=== PATIENT | female | born 1975 | race Caucasian/White ===

== ENCOUNTER 2017-05-16 10:31 | Emergency (ER) | payer BC, OTHER ==
[~2017-05-16] VITALS: Ht 165.1 cm; Wt 69.5 kg
[~2017-05-16 10:31] MED LIST: ESCI1TAB18 PO
[2017-05-16 10:33] VITALS: TEMP 36.8; Ht 165.1 cm; Wt 69.5 kg
[2017-05-16] MEDS ORDERED: KETOROLAC TROMETHAMINE 30 MG/ML VIAL IV STA (10:50)
[2017-05-16] MEDS ORDERED: PROCHLORPERAZINE 5 MG/ML 2 ML VIAL IV STA (10:50)
[2017-05-16] MEDS ORDERED: SODIUM CHLORIDE 0.9% 1000ML 1,000 ML IV STA (10:50)
[2017-05-16] MEDS ORDERED: DiphenhydrAMINE HCL 50 MG/ML VIAL IV STA (10:50)
[2017-05-16] MEDS ORDERED: OPTIRAY 320 IV PRN (11:00)
--- NOTE | 2017-05-16 11:25 | EMERGENCY ROOM VISIT NOTE ---
History Report prepared by Araceliibe: Cherie Canas Under the Supervision of: Dr. Moises Dugan M.D. First contact with patient: 10:47 Chief Complaint: HEADACHE Stated Complaint: MIGRAINE FROM NECK STRAIN History of Present Illness The patient is a 42 year old female who presents to the Emergency Room with complaints of a worsening headache for the past 2.5 days. She rates her discomfort as a 7/10 to 10/10 in severity. The pain radiates from the base of her neck into her jaw and left ear. Advil and Icy Hot have provided minimal relief. She has been nauseous but has not vomited. She denies any recent injuries to her head or neck. She has experienced similar headaches in the past , but states they have never "lasted this long or been this severe". Her bilateral arms feel weak from the headache. The patient denies LOC, fevers, chills, diaphoresis, visual changes, chest pain, breathing difficulties, abdominal pain, back pain, melena, hematochezia, urinary symptoms, numbness, lymphadenopathy, rash, or other complaints. 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 A total of ten systems were reviewed and were otherwise negative. Past Medical & Surgical Medical Problems: (1) Abdominal pain (2) Anxiety (3) Arthritis (4) Depression (5) High blood cholesterol (6) Mood disorder Family History Cancer Social History Smoking Status: Current Every Day Smoker Alcohol Use: occasionally Drug Use: none Marital Status: Housing Status: lives with family Occupation Status: employed Current/Historical Medications Scheduled Escitalopram (Lexapro), 30 MG PO DAILY Mirtazapine (Remeron), 15 MG PO DAILY Allergies Coded Allergies: Prednisone (Unverified Allergy, Unknown, unknown from dr faust records, 05/16/17) Simvastatin (Verified Allergy, Unknown, HIVES, 05/16/17) Hydromorphone (Unverified Adverse Reaction, Intermediate, N/V, 05/16/17) Physical Exam Vital Signs Date Time Temp Pulse Resp B/P (MAP) Pulse Ox O2 Delivery O2 Flow Rate FiO2 05/16/17 13:17 76 136/94 98 05/16/17 12:17 88 16 97 Room Air 05/16/17 10:33 36.8 92 18 128/88 98 Room Air Physical Exam GENERAL: Awake, alert, well appearing, no distress HENT: Normocephalic, atraumatic. TM's normal. Oropharynx unremarkable. EYES: PERRL. EOMI. Normal conjunctiva. Sclera non-icteric. NECK: Supple. No nuchal rigidity. FROM. No bruit. RESPIRATORY: Breath sounds equal. No wheezes. No rhonchi. CARDIAC: Normal rate. Regular rhythm. No murmurs. No rubs. No JVD. GI: Soft, non distended. No tenderness to palpation. No rebound or guarding. No masses. RECTAL: Deferred. MUSCULOSKELETAL: Unremarkable. No edema. No discoloration. Gross motor strength symmetric. NEURO: Cranial nerves 2-12 grossly intact. Normal sensorium. No sensory or motor deficits noted. Speech normal. No pronator drift. SKIN: No rash or jaundice noted. LYMPH: No adenopathy. Medical Decision & Procedures ER Provider Diagnostic Interpretation: Radiology results as stated below per my review and radiologist interpretation: CT ANGIOGRAM OF THE BRAIN COMBO; CT ANGIOGRAM OF THE NECK CLINICAL HISTORY: Headache. Neck pain. COMPARISON STUDY: No priors. TECHNIQUE: Unenhanced axial CT scan of the brain is performed. Subsequently, following the IV administration of 120 of Optiray 320, CT angiogram of the head and neck was performed from the aortic arch to the vertex. Images are reviewed in the axial, sagittal, and coronal planes. 3-D MIPS images are created and assessed. IV contrast was administered without complication. All measurements were calculated based on NASCET criteria. A dose lowering technique was utilized adhering to the principles of ALARA. CT DOSE: 1167.55 mGy.cm FINDINGS: Brain parenchyma: The brain parenchyma is normal in appearance. There is no hemorrhage, mass effect, or evidence of acute territorial ischemia by CT criteria. There is no evidence of enhancing mass lesion on the angiogram phase images. The ventricles, sulci, and cisterns are normal in configuration. Guerrero-white matter differentiation is preserved. No extra-axial fluid collection is seen. Thoracic aorta: Visualized portions of the thoracic aorta are normal in caliber. The aortic arch demonstrates standard 3-vessel anatomy. Right carotid arterial system: The right common carotid artery is widely patent, as are the right internal and external carotid arteries. Left carotid arterial system: The left common carotid artery is widely patent, as are the left internal and external carotid arteries. Vertebral arteries: The vertebral arteries are widely patent bilaterally noting left-sided dominance. Subclavian arteries: Widely patent bilaterally. Intracranial vasculature: There is origin of the right posterior cerebral artery. The internal carotid arteries are patent at the skull base, as are the anterior and middle cerebral arteries bilaterally. The vertebrobasilar system and posterior cerebral arteries are widely patent. The left vertebral artery is dominant. There is no aneurysm, high-grade stenosis, or focal vessel cut off seen throughout the intracranial circulation. Jugular veins: Widely patent bilaterally. Dural sinuses: Patent. Lung apices: Partially visualized upper lobe lung parenchyma appears clear. Soft tissues: The visualized pharyngeal soft tissues are normal in appearance noting angiographic phase technique. The oropharyngeal airway appears widely patent. The salivary and thyroid glands are normal in appearance. No cervical lymphadenopathy is seen. Skeletal structures: The calvarium appears intact. The cervical spine is within normal limits. Sinuses and mastoids: Mild mucosal thickening is seen in the right maxillary antrum. The remaining paranasal sinuses are clear. The mastoid air cells are well pneumatized. IMPRESSION: 1. No acute intracranial abnormality. 2. Unremarkable CT angiogram of the brain. 3. Unremarkable CT angiogram of the neck. Electronically signed by: Tim Beck M.D. 05/16/2017 12:[address] ANGIOGRAM OF THE BRAIN COMBO; CT ANGIOGRAM OF THE NECK CLINICAL HISTORY: Headache. Neck pain. COMPARISON STUDY: No priors. TECHNIQUE: Unenhanced axial CT scan of the brain is performed. Subsequently, following the IV administration of 120 of Optiray 320, CT angiogram of the head and neck was performed from the aortic arch to the vertex. Images are reviewed in the axial, sagittal, and coronal planes. 3-D MIPS images are created and assessed. IV contrast was administered without complication. All measurements were calculated based on NASCET criteria. A dose lowering technique was utilized adhering to the principles of ALARA. CT DOSE: 1167.55 mGy.cm FINDINGS: Brain parenchyma: The brain parenchyma is normal in appearance. There is no hemorrhage, mass effect, or evidence of acute territorial ischemia by CT criteria. There is no evidence of enhancing mass lesion on the angiogram phase images. The ventricles, sulci, and cisterns are normal in configuration. Guerrero-white matter differentiation is preserved. No extra-axial fluid collection is seen. Thoracic aorta: Visualized portions of the thoracic aorta are normal in caliber. The aortic arch demonstrates standard 3-vessel anatomy. Right carotid arterial system: The right common carotid artery is widely patent, as are the right internal and external carotid arteries. Left carotid arterial system: The left common carotid artery is widely patent, as are the left internal and external carotid arteries. Vertebral arteries: The vertebral arteries are widely patent bilaterally noting left-sided dominance. Subclavian arteries: Widely patent bilaterally. Intracranial vasculature: There is origin of the right posterior cerebral artery. The internal carotid arteries are patent at the skull base, as are the anterior and middle cerebral arteries bilaterally. The vertebrobasilar system and posterior cerebral arteries are widely patent. The left vertebral artery is dominant. There is no aneurysm, high-grade stenosis, or focal vessel cut off seen throughout the intracranial circulation. Jugular veins: Widely patent bilaterally. Dural sinuses: Patent. Lung apices: Partially visualized upper lobe lung parenchyma appears clear. Soft tissues: The visualized pharyngeal soft tissues are normal in appearance noting angiographic phase technique. The oropharyngeal airway appears widely patent. The salivary and thyroid glands are normal in appearance. No cervical lymphadenopathy is seen. Skeletal structures: The calvarium appears intact. The cervical spine is within normal limits. Sinuses and mastoids: Mild mucosal thickening is seen in the right maxillary antrum. The remaining paranasal sinuses are clear. The mastoid air cells are well pneumatized. IMPRESSION: 1. No acute intracranial abnormality. 2. Unremarkable CT angiogram of the brain. 3. Unremarkable CT angiogram of the neck. Electronically signed by: Tim Beck M.D. 05/16/2017 12:37 PM Laboratory Results 05/16/17 11:00 Red Blood Count 4.22, Mean Corpuscular Volume 100.5, Mean Corpuscular Hemoglobin 35.8, Mean Corpuscular Hemoglobin Concent 35.6, Mean Platelet Volume 9.7, Neutrophils (%) (Auto) 66.7, Lymphocytes (%) (Auto) 24.5, Monocytes (%) ( Auto) 6.3, Eosinophils (%) (Auto) 1.2, Basophils (%) (Auto) 0.4, Neutrophils # ( Auto) 4.56, Lymphocytes # (Auto) 1.67, Monocytes # (Auto) 0.43, Eosinophils # ( Auto) 0.08, Basophils # (Auto) 0.03 05/16/17 11:00 Test 05/16/17 11:00 White Blood Count 6.83 K/uL (4.8-10.8) Red Blood Count 4.22 M/uL (4.2-5.4) Hemoglobin 15.1 g/dL (12.0-16.0) Hematocrit 42.4 % (37-47) Mean Corpuscular Volume 100.5 fL (80-100) Mean Corpuscular Hemoglobin 35.8 pg (25-34) Mean Corpuscular Hemoglobin Concent 35.6 g/dl (32-36) Platelet Count 164 K/uL (130-400) Mean Platelet Volume 9.7 fL (7.4-10.4) Neutrophils (%) (Auto) 66.7 % Lymphocytes (%) (Auto) 24.5 % Monocytes (%) (Auto) 6.3 % Eosinophils (%) (Auto) 1.2 % Basophils (%) (Auto) 0.4 % Neutrophils # (Auto) 4.56 K/uL (1.4-6.5) Lymphocytes # (Auto) 1.67 K/uL (1.2-3.4) Monocytes # (Auto) 0.43 K/uL (0.11-0.59) Eosinophils # (Auto) 0.08 K/uL (0-0.5) Basophils # (Auto) 0.03 K/uL (0-0.2) RDW Standard Deviation 49.9 fL (36.4-46.3) RDW Coefficient of Variation 13.7 % (11.5-14.5) Immature Granulocyte % (Auto) 0.9 % Immature Granulocyte # (Auto) 0.06 K/uL (0.00-0.02) Erythrocyte Sedimentation Rate 3 mm/hr (0-21) Anion Gap 7.0 mmol/L (3-11) Est Creatinine Clear Calc Drug Dose 62.8 ml/min Estimated GFR () 68.9 Estimated GFR (Non- 59.5 BUN/Creatinine Ratio 9.6 (10-20) Calcium Level 9.2 mg/dl (8.5-10.1) Human Chorionic Gonadotropin, Qual NEG (NEG) Lyme Disease IgG Antibody NEG (NEG) Lyme Disease IgM Antibody NEG (NEG) Laboratory results reviewed by me Medications Administered Medications (Trade) Dose Ordered Sig/Benjamin Route Start Time Stop Time Status Last Admin Dose Admin Prochlorperazine Edisylate (Compazine Inj) 10 mg NOW STAT IV 05/16/17 10:50 05/16/17 10:53 DC 05/16/17 11:09 10 MG Sodium Chloride 1,000 ml @ 999 mls/hr Q1H1M STAT IV 05/16/17 10:50 05/16/17 11:50 DC 05/16/17 11:10 999 MLS/HR Ketorolac Tromethamine (Toradol Inj) 15 mg NOW STAT IV 05/16/17 10:50 05/16/17 10:53 DC 05/16/17 11:10 15 MG Diphenhydramine HCl (Benadryl Inj) 25 mg NOW STAT IV 05/16/17 10:50 05/16/17 10:53 DC 05/16/17 11:09 25 MG Acetaminophen/ Butalbital/ Caffeine (Fioricet Tab) 2 tab NOW STAT PO 05/16/17 13:01 05/16/17 13:03 DC 05/16/17 13:15 2 TAB ED Course 1049: The patient was evaluated in room C4. A complete history and physical exam was performed. 1050: Benadryl 25 mg IV, Toradol 15 mg IV, NSS 1000 ml @ 999 mls/hr IV, Compazine 10 mg IV. 1305: I reevaluated the patient. She is feeling well and is ready to go home. I discussed her results and discharge instructions and she verbalized complete understanding and agreement. Medical Decision Triage Nursing notes reviewed. The patient's presentation and history were concerning for headache. Etiologies such as migraine, tumor, headache, sinus thrombosis, temporal arteritis, sinusitis, CVA, ICH, SAH, infection, vascular, as well as others were entertained. Patient was evaluated. Her physical examination was nonfocal. She was afebrile. No meningeal findings. An IV was established. Blood work was obtained. The patient was given Compazine, Benadryl, Toradol, and fluid hydration. She was sent for CT imaging. CT angiography of the head neck did not reveal any acute findings. After treatment with the previously noted medications the patient had resolution of symptoms and felt much better. The patient had a gradual onset of her headaches. She has no meningeal findings. She has no fever or white count. Lumbar puncture was felt to be unnecessary at this time. conservative management was discussed and the patient felt comfortable. She was given 2 Fioricet to go in case any symptoms returned and were not responsive to ibuprofen or Tylenol. She will follow-up with her primary physician. If she worsens in any way she will be back. Dr. John Huddleston the evaluation outlined above other emergent etiologies such as those listed in the differential, as well as others, were deemed relatively unlikely. The patient was educated about the findings as listed above. All questions were answered and the patient was pleased with the treatment. Return instructions were outlined and the patient was discharged in stable condition. The patient was referred to her PCP for follow-up for a recheck of the current condition. Medication Reconcilliation Current Medication List: was personally reviewed by me Blood Pressure Screening Patient's blood pressure: Normal blood pressure Blood pressure disposition: Did not require urgent referral Impression Primary Impression: Headache Scribe Attestation The scribe's documentation has been prepared under my direction and personally reviewed by me in its entirety. I confirm that the note above accurately reflects all work, treatment, procedures, and medical decision making performed by me. Departure Information Dispostion Home / Self-Care Referrals Juancarlos Hale MD (PCP) Patient Instructions My [facility] Additional Instructions For recurrent headache HEADACHE INSTRUCTIONS: DO NOT drive, drink alcohol, operate machinery, or perform dangerous activities today. You were given medications in the ER that can affect your ability to safely function or operate a vehicle. Rest today in a quiet, peaceful, dark environment and get a full 8-10 hrs of sleep tonight. Avoid loud noises, smoke/smoking, alcohol, bright lights, stress, or physical exertion today to minimize the chance the headache may return. Continue current medications. Ibuprofen(Motrin, Advil) may be used for fever or pain. Use 600mg every six hours as needed. Take with food. Avoid using more than 2400mg in a 24 hour period. Do not use 2400mg per day for more than three consecutive days without physician direction. Prolonged inappropriate use can lead to stomach upset or ulcers. (AND/OR) Acetaminophen(Tylenol) may be used for fever or pain. Use 1000mg every six hours as needed. Avoid using more than 4000mg in a 24 hour period. For headache not responsive to ibuprofen, take Fioricet 1 pill every 4 hours. Return to the ER for passing out, worsening headache, vision problems, neck stiffness/pain, fevers, vomiting, worsening of your condition, or as needed. Follow up with your primary physician in 2-3 days for a recheck of your current condition.
[2017-05-16] MEDS ORDERED: MIRT15TA PO (11:26)
[2017-05-16] MEDS ORDERED: ESCI10TA17 PO (11:26)
[2017-05-16 11:27] LABS: BASO % 0.4 %; BASO ABS # 0.03 K/uL (0-0.2); EOS % 1.2 %; EOS ABS # 0.08 K/uL (0-0.5); HEMATOCRIT 42.4 % (37-47); HEMOGLOBIN 15.1 g/dL (12.0-16.0); IG# 0.06 K/uL (0.00-0.02); LYMPH % 24.5 %; LYMPH ABS # 1.67 K/uL (1.2-3.4); MEAN CELL VOLUME 100.5 fL (80-100); MEAN CORPUSCULAR HEMOGLOBIN 35.8 pg (25-34); MEAN CORPUSCULAR HGB CONC 35.6 g/dl (32-36); MEAN PLATELET VOLUME 9.7 fL (7.4-10.4); MONO % 6.3 %; MONO ABS # 0.43 K/uL (0.11-0.59); NEUT % 66.7 %; NEUT ABS # 4.56 K/uL (1.4-6.5); PLATELET COUNT 164 K/uL (130-400); RED CELL DISTRIBUTION WIDTH CV 13.7 % (11.5-14.5); RED CELL DISTRIBUTION WIDTH SD 49.9 fL (36.4-46.3); WHITE BLOOD COUNT 6.83 K/uL (4.8-10.8)
[2017-05-16 11:51] LABS: CALCIUM 9.2 mg/dl (8.5-10.1); CREATININE 1.13 mg/dl (0.60-1.20)
--- NOTE | 2017-05-16 12:39 | DIAGNOSTIC IMAGING REPORT ---
CT ANGIOGRAM OF THE BRAIN COMBO; CT ANGIOGRAM OF THE NECK CLINICAL HISTORY: Headache. Neck pain. COMPARISON STUDY: No priors. TECHNIQUE: Unenhanced axial CT scan of the brain is performed. Subsequently, following the IV administration of 120 of Optiray 320, CT angiogram of the head and neck was performed from the aortic arch to the vertex. Images are reviewed in the axial, sagittal, and coronal planes. 3-D MIPS images are created and assessed. IV contrast was administered without complication. All measurements were calculated based on NASCET criteria. A dose lowering technique was utilized adhering to the principles of ALARA. CT DOSE: 1167.55 mGy.cm FINDINGS: Brain parenchyma: The brain parenchyma is normal in appearance. There is no hemorrhage, mass effect, or evidence of acute territorial ischemia by CT criteria. There is no evidence of enhancing mass lesion on the angiogram phase images. The ventricles, sulci, and cisterns are normal in configuration. Guerrero-white matter differentiation is preserved. No extra-axial fluid collection is seen. Thoracic aorta: Visualized portions of the thoracic aorta are normal in caliber. The aortic arch demonstrates standard 3-vessel anatomy. Right carotid arterial system: The right common carotid artery is widely patent, as are the right internal and external carotid arteries. Left carotid arterial system: The left common carotid artery is widely patent, as are the left internal and external carotid arteries. Vertebral arteries: The vertebral arteries are widely patent bilaterally noting left-sided dominance. Subclavian arteries: Widely patent bilaterally. Intracranial vasculature: There is origin of the right posterior cerebral artery. The internal carotid arteries are patent at the skull base, as are the anterior and middle cerebral arteries bilaterally. The vertebrobasilar system and posterior cerebral arteries are widely patent. The left vertebral artery is dominant. There is no aneurysm, high-grade stenosis, or focal vessel cut off seen throughout the intracranial circulation. Jugular veins: Widely patent bilaterally. Dural sinuses: Patent. Lung apices: Partially visualized upper lobe lung parenchyma appears clear. Soft tissues: The visualized pharyngeal soft tissues are normal in appearance noting angiographic phase technique. The oropharyngeal airway appears widely patent. The salivary and thyroid glands are normal in appearance. No cervical lymphadenopathy is seen. Skeletal structures: The calvarium appears intact. The cervical spine is within normal limits. Sinuses and mastoids: Mild mucosal thickening is seen in the right maxillary antrum. The remaining paranasal sinuses are clear. The mastoid air cells are well pneumatized. IMPRESSION: 1. No acute intracranial abnormality. 2. Unremarkable CT angiogram of the brain. 3. Unremarkable CT angiogram of the neck. Electronically signed by: Tim Beck M.D. 05/16/2017 12:37 PM Dictated Date/Time: 05/16/2017 12:30 PM
[2017-05-16] MEDS ORDERED: BUTALBITAL/ACETAMIN/CAFFEINE TAB PO STA (13:01)
[2017-05-16] MEDS ORDERED: EMPTY 8 DRAM VIAL ONE (13:10)
[2017-05-16 13:17] VITALS: BP 136/94; PULSE 76; O2SAT 98
== END 2017-05-16 13:18 | disposition home or self-care (01) ==
LOC: C.EDB 10:33 → C.EDC 13:18
DX: R51 Headache (principal); F32.9 Major depressive disorder, single episode, unspecified; M19.90 Unspecified osteoarthritis, unspecified site; F17.200 Nicotine dependence, unspecified, uncomplicated; Z88.8 Allergy status to other drugs, medicaments and biological substances; Z88.6 Allergy status to analgesic agent; Z80.9 Family history of malignant neoplasm, unspecified

== ENCOUNTER 2019-04-13 20:23 | Inpatient (IN) ==
[2019-04-13 21:32] LABS: Basophils # (auto) 0.07 K/uL (0-0.2); Basophils % (auto) 0.6 %; Eosinophils # (auto) 0.09 K/uL (0-0.5); Eosinophils % (auto) 0.8 %; Hematocrit (blood only) 44.3 % (37-47); Hemoglobin 15.4 g/dL (12.0-16.0); Immature Granulocytes # (auto) 0.21 K/uL (0.00-0.02); Immature Granulocytes % (auto) 1.9 %; Lymphocytes # (auto) 3.31 K/uL (1.2-3.4); Lymphocytes % (auto) 29.4 %; Mean Corpuscular Hemoglobin 34.5 pg (25-34); Mean Corpuscular Hgb Conc 34.8 g/dL (32-36); Mean Corpuscular Volume 99.1 fL (80-100); Mean Platelet Volume 9.5 fL (7.4-10.4); Monocytes # (auto) 0.94 K/uL (0.11-0.59); Monocytes % (auto) 8.4 %; Neutrophils # (auto) 6.63 K/uL (1.4-6.5); Neutrophils % (auto) 58.9 %; Platelet Count 206 K/uL (130-400); RDW Coefficient of Variation 13.6 % (11.5-14.5); RDW Standard Deviation 48.4 fL (36.4-46.3); Red Blood Count 4.47 M/uL (4.2-5.4); White Blood Count 11.25 K/uL (4.8-10.8)
[2019-04-13 21:48] LABS: Prothrombin Time 9.8 Seconds (9.0-12.0)
--- NOTE | 2019-04-13 21:49 | XRay Report ---
SINGLE VIEW CHEST CLINICAL HISTORY: Atypical chest pain. FINDINGS: An AP, portable, upright chest radiograph is compared to study dated 06/15/2014. The cardiome diastinal silhouette is unremarkable. The lungs and pleural spaces are clear. No pneumothorax is seen . The bony thorax is grossly intact. IMPRESSION: No active disease in the chest. ACT 112: Negative or not required by law. Electronically signed by: Tim Beck M.D. 04/13/2019 9:47 PM
[2019-04-13 21:51] LABS: Alanine Aminotransferase 26 U/L (12-78); Albumin Globulin Ratio 1.2 (0.9-2); Albumin Level 4.1 gm/dl (3.4-5.0); Alkaline Phosphatase 61 U/L (45-117); BUN Creatinine Ratio 15.7 (10-20); Bilirubin,Total 0.4 mg/dl (0.2-1); Blood Urea Nitrogen 19 mg/dl (7-18); Calcium 9.7 mg/dl (8.5-10.1); Carbon Dioxide 24 mmol/L (21-32); Chloride 103 mmol/L (98-107); Creatinine Clr Calc Pharmacy 56.3 ml/min; Est GFR (African American) 62.6; Globulin 3.4 gm/dl (2.5-4.0); Glucose 102 mg/dl (70-99); Total Protein 7.5 gm/dl (6.4-8.2); Troponin I < 0.015 ng/ml (0-0.045)
[2019-04-13 21:53] LABS: Potassium 4.1 mmol/L (3.5-5.1); Sodium 136 mmol/L (136-145)
[2019-04-13 22:02] LABS: Aspartate Aminotransferase 10 U/L (15-37)
[2019-04-13] MEDS ORDERED: SODIUM CHLORIDE 0.9% 1000ML 1,000 ML IV ONE (22:16)
[2019-04-13] MEDS ORDERED: NITROGLYCERIN 2% OINTMENT 30GM TUBE EXT ONE (22:20)
[2019-04-13] MEDS ORDERED: ASPIRIN CHEW 324 MG PO STA (22:20)
[2019-04-13] MEDS ORDERED: ASPIRIN CHEW 324 MG ONE (22:25)
[2019-04-13 22:43] LABS: D Dimer < 190 ug/L FEU (0-500)
[2019-04-13] MEDS ORDERED: AMLODIPINE BESYLATE 5 MG TAB PO ONE (23:44)
[2019-04-13] MEDS ORDERED: AMLODIPINE BESYLATE 5 MG TAB ONE (23:47)
[2019-04-14 00:45] LABS: Lipase 131 U/L (73-393); Troponin I < 0.015 ng/ml (0-0.045)
--- NOTE | 2019-04-14 01:07 | History & Physical Report ---
Date of Service April 14, 2019 Assessment & Plan (1) Chest pain: Intermittent episodes in the last year Likely secondary to uncontrolled hypertension Recently started on CURRY inhibitor outpatient Rule out ACS ARF hyperlipidemia, statin intolerance anxiety/mood disorder, at baseline past tobacco abuse Hyperglycemia rule out DM OBS PCU Initiate Norvasc in place of lisinopril in consideration of kidney dysfunction Baseline UA, monitor creatinine sponsor IV fluids. Follow troponin TTE, Cardiology consult RE intermittent chest pain Aspirin for CAD prevention until ACS ruled out Check hemoglobin A1c DVT prophylaxis Heparin subcu Full code History of Present Illness Chief Complaint: Chest pain Primary Care Provider: Nila Estrella PA-C History obtained from patient, family, and records. Medical history significant for hypertension, hyperlipidemia, anxiety/mood disorder, past tobacco abuse, occasional alcohol binging, cervical spondylosis as per records. Last 2 months, patient BP noted to be high outpatient on visits [place] [facility] [place]. SBP 170s. Intermittent substernal discomfort in the last year occurring twice monthly even at rest with spontaneous resolution. Patient seen at PCPs office 2 days ago. SBP noted to be 170s. Patient started on lisinopril. Smoking cessation and reduction of EtOH intake recommended. Last night patient had substernal discomfort going to her neck and arm with some shortness of breath. No cough, no fever, no chills. Some lightheadedness. No headache. SBP 190s at home. Patient denies unusual stress at home, OTC NSAID intake, dietary indiscretion. Patient snores at home as per . Not sure about apneic events. Patient discomfort improved with nitroglycerin administration at the ER. Medical History as above Surgical History : Breast augmentation, BTL, endometrial ablation, CINDY Family History : Heart disease, colon cancer, gynecologic cancer Personal/Social history : Past tobacco abuse, recently quit smoking; occasional alcoholic binging, [employer] employee Allergies Allergy/AdvReac Type Severity Reaction Status Date / Time prednisone Allergy Unknown unknown Verified 04/13/19 22:[address] faust records simvastatin Allergy Unknown HIVES Verified 04/13/19 22:11 hydromorphone AdvReac Intermediate N/V Verified 04/13/19 22:11 Home Medications Home Medications Medication Instructions Recorded Confirmed Type cholecalciferol (vitamin D3) 50,000 units PO WK cap 04/05/19 04/13/19 History 25,000 unit capsule duloxetine 60 mg capsule,delayed 60 mg PO QAM cap 04/05/19 04/13/19 History release mecobalamin (vitamin B12) 1,000 1,000 mcg SL DAILY 04/05/19 04/13/19 History mcg disintegrating tablet,sublingual mirtazapine 15 mg tablet 15 mg PO HS 04/05/19 04/13/19 History L. rhamnosus-L. reuteri [RepHresh 1 cap PO DAILY 04/13/19 04/13/19 History Pro-B] duloxetine [Cymbalta] 30 mg PO QPM 04/13/19 04/13/19 History lisinopril 10 mg PO DAILY 04/13/19 04/13/19 History lisinopril 20 mg PO QAM #30 tab 04/14/19 Rx Past Med/Surg History Medical History Anxiety Cervical pain (neck) Cervical spondylosis Degenerative disc disease, cervical Depression Surgical History H/O breast augmentation History of partial hysterectomy Hx of tubal ligation Family History Mother Diabetes Father Heart disease Other CHF (congestive heart failure) Social History Preferred Language: Vietnamese Communication Ability: Effective Beliefs That Will Affect Care: None Current Living Situation: Spouse Other Information That Helps Us Care for You: No Feels Safe at Home: Yes Safety Concerns: Feels Safe At This Time Smoking Status: Former smoker Tobacco Type: cigarettes ; Smoking End Date: 04/13/2019 ; Hx Alcohol Use: Yes Alcohol type: hard liquor Hx Substance Use: No Review of Systems Review of Systems: As per HPI, all 10 systems reviewed, all other ROS negative Physical Exam Physical Exam: GENERAL: Comfortable, pleasant, no respiratory distress SKIN: Normal color, warm HEENT: [place] palpebral conjunctivae, no ptosis, dry buccal mucosa NECK : Supple, no tenderness CHEST : CTA, no tenderness HEART : RRR, no obvious murmurs ABDOMEN: Soft, nontender EXTREMITIES : No LE swelling/tenderness, no other conspicuous deformities noted NEUROLOGIC : Coherent, no facial asymmetry, no other gross focality Results & Data Vital Signs (Past 12 Hours) Vital Signs Temp Pulse Pulse Resp BP BP Pulse Ox 04/14/19 00:05 84 20 170/115 H 97 04/13/19 22:20 86 20 165/120 H 97 04/13/19 21:08 84 20 177/123 H 04/13/19 20:29 36.9 C 88 18 212/142 H 98 Laboratory Results Laboratory Results WBC 11.25 K/uL (4.8-10.8) H 04/13/19 20:57 RBC 4.47 M/uL (4.2-5.4) 04/13/19 20:57 Hgb 15.4 g/dL (12.0-16.0) 04/13/19 20:57 Hct 44.3 % (37-47) 04/13/19 20:57 MCV 99.1 fL (80-100) 04/13/19 20:57 MCH 34.5 pg (25-34) H 04/13/19 20:57 MCHC 34.8 g/dL (32-36) 04/13/19 20:57 RDW Std Deviation 48.4 fL (36.4-46.3) H 04/13/19 20:57 RDW Coeff of Jessica 13.6 % (11.5-14.5) 04/13/19 20:57 Plt Count 206 K/uL (130-400) 04/13/19 20:57 MPV 9.5 fL (7.4-10.4) 04/13/19 20:57 Immature Gran % (Auto) 1.9 % 04/13/19 20:57 Neut % (Auto) 58.9 % 04/13/19 20:57 Lymph % (Auto) 29.4 % 04/13/19 20:57 [place] % (Auto) 8.4 % 04/13/19 20:57 Eos % (Auto) 0.8 % 04/13/19 20:57 Baso % (Auto) 0.6 % 04/13/19 20:57 Immature Gran # (Auto) 0.21 K/uL (0.00-0.02) H 04/13/19 20:57 Neut # (Auto) 6.63 K/uL (1.4-6.5) H 04/13/19 20:57 Lymph # (Auto) 3.31 K/uL (1.2-3.4) 04/13/19 20:57 [place] # (Auto) 0.94 K/uL (0.11-0.59) H 04/13/19 20:57 Eos # (Auto) 0.09 K/uL (0-0.5) 04/13/19 20:57 Baso # (Auto) 0.07 K/uL (0-0.2) 04/13/19 20:57 PT 9.8 Seconds (9.0-12.0) 04/13/19 20:57 INR 1.0 (0.9-1.1) 04/13/19 20:57 APTT 27.0 Seconds (21.0-31.0) 04/13/19 20:57 PTT Ratio 1.0 04/13/19 20:57 D-Dimer < 190 ug/L FEU (0-500) 04/13/19 20:57 Sodium 136 mmol/L (136-145) 04/13/19 20:57 Potassium 4.1 mmol/L (3.5-5.1) 04/13/19 20:57 Chloride 103 mmol/L (98-107) 04/13/19 20:57 Carbon Dioxide 24 mmol/L (21-32) 04/13/19 20:57 Anion Gap 9.0 (3-11) 04/13/19 20:57 BUN 19 mg/dl (7-18) H 04/13/19 20:57 Creatinine 1.21 mg/dl (0.6-1.2) H 04/13/19 20:57 Est Cr Clr Drug Dosing 56.3 ml/min 04/13/19 20:57 Est GFR ( Amer) 62.6 04/13/19 20:57 Est GFR (Non-Af Amer) 54.0 04/13/19 20:57 BUN/Creatinine Ratio 15.7 (10-20) 04/13/19 20:57 Glucose 102 mg/dl (70-99) H 04/13/19 20:57 Calcium 9.7 mg/dl (8.5-10.1) 04/13/19 20:57 Total Bilirubin 0.4 mg/dl (0.2-1) 04/13/19 20:57 AST 10 U/L (15-37) L 04/13/19 20:57 ALT 26 U/L (12-78) 04/13/19 20:57 Alkaline Phosphatase 61 U/L (45-117) 04/13/19 20:57 Troponin I < 0.015 ng/ml (0-0.045) 04/13/19 23:59 Total Protein 7.5 gm/dl (6.4-8.2) 04/13/19 20:57 Albumin 4.1 gm/dl (3.4-5.0) 04/13/19 20:57 Globulin 3.4 gm/dl (2.5-4.0) 04/13/19 20:57 Albumin/Globulin Ratio 1.2 (0.9-2) 04/13/19 20:57 Lipase 131 U/L (73-393) 04/13/19 23:59 Diagnostic Findings Chest x-ray : No active disease EKG as per my interpretation : Rate 80, NSR, normal axis, no ischemia
[2019-04-14] MEDS ORDERED: SODIUM CHLORIDE 0.9% 1000ML 1,000 ML IV ONE (01:18)
--- NOTE | 2019-04-14 02:26 | Emergency Department Note ---
Entered by Chris Ny acting as a scribe for History of Present Illness General Chief complaint: Hypertension Stated complaint: HYPERTENSION Time Seen by Provider: 04/13/19 21:20 Source: patient History of Present Illness Onset (ago): year(s) 1 Pain Consistency: + other (increase) Maximum Pain Intensity: 5 Quality: + other (blood pressure) Exacerbated By: + other (stress of alcohol and smoking cessation) Associated symptoms: + denies other symptoms (leg swelling, leg pain, recent long trips, and taking control), + chest pain (tightness), + shortness of breath and + other (lightheaded, nauseous, tingling to her lip, ); no headaches The patient is a 44 y/o female who presents to the ED w/ CC of increasing blood pressure beginning a year ago. The patient states she did not know, but her blood pressure has been increasing over the past year. She reports her resting blood pressure has been around the 170s/110s at several different doctor appointments throughout the year. The patient notes she was evaluated by Pain Management three days ago, and had an epidural injection in her neck. She states she thought she was relaxed, but her blood pressure was around 170s/110s. The patient reports she waited 20 minutes after her BP was taken and tried to relax. She notes her BP then salazar higher than her initial reading. The patient states she was discharged with a PCP follow-up. She reports she was evaluated by her PCP today and still had a BP in the 170s systolic. The patient notes she had a normal EKG, and was not allowed to leave until her BP dropped below 160. She states her BP at the time of discharge was 158/97. The patient reports she was discharged with a prescription for Lisinopril. She notes she just started her medication earlier this evening. The patient states she was relaxing the rest of the day and was reading to try to distract herself from thinking about wanting a cigarette. She reports she took her blood pressure this evening, and it was 197/119. The patient notes she was extremely concerned about the systolic number and felt nauseous. She states she is not sure if this from her reaction or from the elevated BP. The patient reports she was also lightheaded when walking back from triage. She notes she also started to develop a tingling sensation in her upper lip. The patient states she has a history of alcoholism and is a smoker. She reports over February and March, she doing a "withdraw of alcohol". The patient notes she was occasionally drinking and has stopped entirely. She states she also has the intension to stop smoking. The patient reports today was her target date to stop smoking. She notes she normally smoked 1/2 a pack a day when sober and 1 pack a day when drinking. The patient states she has also had intermittent tightness under her left breast and constant shortness of breath for the past few months. She reports her shortness of breath is present when si tting and severely worsens with exertion. The patient notes she did not think to mention this to her PCP. She states she has a severe family history of CHF that has caused members of her family to between the ages of 47 to 53. The patient reports she started exercising on the treadmill for 20-30 minutes to increase her heart rate and then would lift weights. She notes throughout these exercises she would be extremely short of breath. The patient denies severe headache, leg swelling, leg pain, recent long trips, and taking control. Home Medications Home Medications Medication Instructions Recorded Confirmed Type cholecalciferol (vitamin D3) 50,000 units PO WK cap 04/05/19 04/13/19 History 25,000 unit capsule duloxetine 60 mg capsule,delayed 60 mg PO QAM cap 04/05/19 04/13/19 History release mecobalamin (vitamin B12) 1,000 1,000 mcg SL DAILY 04/05/19 04/13/19 History mcg disintegrating tablet,sublingual mirtazapine 15 mg tablet 15 mg PO HS 04/05/19 04/13/19 History L. rhamnosus-L. reuteri [RepHresh 1 cap PO DAILY 04/13/19 04/13/19 History Pro-B] duloxetine [Cymbalta] 30 mg PO QPM 04/13/19 04/13/19 History lisinopril 10 mg PO DAILY 04/13/19 04/13/19 History Allergies Allergy/AdvReac Type Severity Reaction Status Date / Time prednisone Allergy Unknown unknown Verified 04/13/19 22:[address] faust records simvastatin Allergy Unknown HIVES Verified 04/13/19 22:11 hydromorphone AdvReac Intermediate N/V Verified 04/13/19 22:11 Past Med/Surg History Medical History Anxiety Cervical pain (neck) Cervical spondylosis Degenerative disc disease, cervical Depression Surgical History H/O breast augmentation History of partial hysterectomy Hx of tubal ligation Family History Mother Diabetes Father Heart disease Other CHF (congestive heart failure) Social History Preferred Language: Uzbek Feels Safe at Home: Yes Smoking Status: Current every day smoker Review of Systems See HPI for pertinent positives & negatives. and A total of 10 systems reviewed and were otherwise negative Physical Exam Vital Signs Vital Signs - 24 hr 04/13/19 20:29 04/13/19 21:08 04/13/19 22:20 Temperature 36.9 C Temperature Source Oral Pulse Rate 88 Pulse Rate [Right Finger] 84 86 Pulse Rhythm [Right Finger] Regular Pulse Strength [Right Finger] Normal Respiratory Rate 18 20 20 Respiratory Effort / Characteristics Non-Labored Spontaneous Non-Labored Spontaneous Non-Labored Spontaneous Respiratory Depth Normal Normal Normal Respiratory Pattern Regular Blood Pressure 212/142 H Blood Pressure [Right Arm] 177/123 H 165/120 H Blood Pressure Mean 165 Blood Pressure Mean [Right Arm] 141 135 Blood Pressure Position Sitting Blood Pressure Position [Right Arm] Sitting Pulse Oximetry 98 97 Oxygen Delivery Method Room Air Room Air Sepsis Recent Fever Within 48 Hours No Sepsis Action Taken by Nursing No Action Required 04/14/19 00:05 Temperature Temperature Source Pulse Rate Pulse Rate [Right Finger] 84 Pulse Rhythm [Right Finger] Regular Pulse Strength [Right Finger] Normal Respiratory Rate 20 Respiratory Effort / Characteristics Non-Labored Spontaneous Respiratory Depth Normal Respiratory Pattern Blood Pressure Blood Pressure [Right Arm] 170/115 H Blood Pressure Mean Blood Pressure Mean [Right Arm] 133 Blood Pressure Position Blood Pressure Position [Right Arm] Pulse Oximetry 97 Oxygen Delivery Method Room Air Sepsis Recent Fever Within 48 Hours Sepsis Action Taken by Nursing Constitutional: Vital signs reviewed. Eyes: Pupils are equal round reactive to light. Conjunctiva are noninjected. ENT: Pharynx is clear without erythema or exudate. Mucous membranes are moist. Neck supple without meningeal signs. Respiratory: Clear to auscultation bilaterally. Breath sounds are equal bilaterally. Cardiovascular: Regular rate and rhythm. No rubs or gallops. GI: Soft, nondistended and nontender. Bowel sounds are present. Musculoskeletal: No peripheral edema. No lower extremity tenderness. Integumentary: No cyanosis. Neurological: The patient is awake and alert. No focal deficits. Psychiatric: Normal affect. Course Course 2123: Past medical records reviewed. The patient was evaluated in room C11B. A complete history and physical exam was performed. 2222: The patient feels lightheaded currently. I discussed her test results and recommended a hospitalist evaluation. Her BP is still elevated. I am ordering the patient nitroglycerin paste. 2342: Upon reevaluation, the patient has had improvement of her BP and her D- dimer is negative. I discussed laboratory and radiographic results with her. She verbalized agreement of the treatment plan. The patient will be evaluated for further management and care. 2345: I reviewed the patient's case with Dr. Garcia, [facility] Hospitalist. He will evaluate the patient for further management. Administered Medications Discontinued Medications Amlodipine Besylate (Norvasc) 2.5 mg PO NOW ONE Stop: 04/13/19 23:45 Last Admin: 04/14/19 00:03 Dose: Not Given Documented by: [id number] Amlodipine Besylate (Norvasc) Confirm Administered Dose 5 mg .ROUTE .STK-MED ONE Stop: 04/13/19 23:48 Last Admin: 04/14/19 00:03 Dose: 2.5 mg Documented by: [id number] Aspirin (Aspirin) 324 mg PO NOW STA Stop: 04/13/19 22:21 Last Admin: 04/13/19 22:27 Dose: 324 mg Documented by: [id number] Aspirin (Aspirin) Confirm Administered Dose 324 mg .ROUTE .STK-MED ONE Stop: 04/13/19 22:26 Last Admin: 04/13/19 22:28 Dose: Not Given Documented by: [id number] Sodium Chloride (Nss 1000ml) 1,000 mls @ 999 mls/hr IV .Q1H1M ONE Stop: 04/13/19 23:16 Last Infusion: 04/13/19 23:22 Dose: 0 mls/hr Documented by: [id number] Admin: 02/01/20 22:20 Dose: 999 mls/hr Documented by: [id number] Nitroglycerin (Nitro-Bid 2%) 1 inch EXT NOW ONE Stop: 04/13/19 22:21 Last Admin: 04/13/19 22:27 Dose: 1 inch Documented by: [id number] Medical Decision Making Differential Diagnosis Differential diagnosis includes: unstable angina, PE, KS, pleurisy, HTN emergency. Medical Records Attestation: I reviewed the patient's medical records. I did perform a limited focused review of portions of the patient's old chart on the electronic medical record. The patient had an epidural injection to the neck by Pain Management on the 10 of April. Home Medications Current Medication List: was personally reviewed by me Laboratory Data Attestation: I reviewed the patient's lab results. Result diagrams: 04/13/19 20:57 04/13/19 20:57 Lab Results 04/13/19 04/13/19 04/13/19 Range/Units 20:57 20:57 20:57 WBC 11.25 H (4.8-10.8) K/uL RBC 4.47 (4.2-5.4) M/uL Hgb 15.4 (12.0-16.0) g/dL Hct 44.3 (37-47) % MCV 99.1 (80-100) fL MCH 34.5 H (25-34) pg MCHC 34.8 (32-36) g/dL RDW Std Deviation 48.4 H (36.4-46.3) fL RDW Coeff of Jessica 13.6 (11.5-14.5) % Plt Count 206 (130-400) K/uL MPV 9.5 (7.4-10.4) fL Immature Gran % (Auto) 1.9 % Neut % (Auto) 58.9 % Lymph % (Auto) 29.4 % [place] % (Auto) 8.4 % Eos % (Auto) 0.8 % Baso % (Auto) 0.6 % Immature Gran # (Auto) 0.21 H (0.00-0.02) K/uL Neut # (Auto) 6.63 H (1.4-6.5) K/uL Lymph # (Auto) 3.31 (1.2-3.4) K/uL [place] # (Auto) 0.94 H (0.11-0.59) K/uL Eos # (Auto) 0.09 (0-0.5) K/uL Baso # (Auto) 0.07 (0-0.2) K/uL PT 9.8 (9.0-12.0) Seconds INR 1.0 (0.9-1.1) APTT 27.0 (21.0-31.0) Seconds PTT Ratio 1.0 D-Dimer (0-500) ug/L FEU Sodium 136 (136-145) mmol/L Potassium 4.1 (3.5-5.1) mmol/L Chloride 103 (98-107) mmol/L Carbon Dioxide 24 (21-32) mmol/L Anion Gap 9.0 (3-11) BUN 19 H (7-18) mg/dl Creatinine 1.21 H (0.6-1.2) mg/dl Est Cr Clr Drug Dosing 56.3 ml/min Est GFR ( Amer) 62.6 Est GFR (Non-Af Amer) 54.0 BUN/Creatinine Ratio 15.7 (10-20) Glucose 102 H (70-99) mg/dl Calcium 9.7 (8.5-10.1) mg/dl Total Bilirubin 0.4 (0.2-1) mg/dl AST 10 L (15-37) U/L ALT 26 (12-78) U/L Alkaline Phosphatase 61 (45-117) U/L Troponin I < 0.015 (0-0.045) ng/ml Total Protein 7.5 (6.4-8.2) gm/dl Albumin 4.1 (3.4-5.0) gm/dl Globulin 3.4 (2.5-4.0) gm/dl Albumin/Globulin Ratio 1.2 (0.9-2) Lipase (73-393) U/L 04/13/19 04/13/19 Range/Units 20:57 23:59 WBC (4.8-10.8) K/uL RBC (4.2-5.4) M/uL Hgb (12.0-16.0) g/dL Hct (37-47) % MCV (80-100) fL MCH (25-34) pg MCHC (32-36) g/dL RDW Std Deviation (36.4-46.3) fL RDW Coeff of Jessica (11.5-14.5) % Plt Count (130-400) K/uL MPV (7.4-10.4) fL Immature Gran % (Auto) % Neut % (Auto) % Lymph % (Auto) % [place] % (Auto) % Eos % (Auto) % Baso % (Auto) % Immature Gran # (Auto) (0.00-0.02) K/uL Neut # (Auto) (1.4-6.5) K/uL Lymph # (Auto) (1.2-3.4) K/uL [place] # (Auto) (0.11-0.59) K/uL Eos # (Auto) (0-0.5) K/uL Baso # (Auto) (0-0.2) K/uL PT (9.0-12.0) Seconds INR (0.9-1.1) APTT (21.0-31.0) Seconds PTT Ratio D-Dimer < 190 (0-500) ug/L FEU Sodium (136-145) mmol/L Potassium (3.5-5.1) mmol/L Chloride (98-107) mmol/L Carbon Dioxide (21-32) mmol/L Anion Gap (3-11) BUN (7-18) mg/dl Creatinine (0.6-1.2) mg/dl Est Cr Clr Drug Dosing ml/min Est GFR ( Amer) Est GFR (Non-Af Amer) BUN/Creatinine Ratio (10-20) Glucose (70-99) mg/dl Calcium (8.5-10.1) mg/dl Total Bilirubin (0.2-1) mg/dl AST (15-37) U/L ALT (12-78) U/L Alkaline Phosphatase (45-117) U/L Troponin I < 0.015 (0-0.045) ng/ml Total Protein (6.4-8.2) gm/dl Albumin (3.4-5.0) gm/dl Globulin (2.5-4.0) gm/dl Albumin/Globulin Ratio (0.9-2) Lipase 131 (73-393) U/L Imaging Data Radiologist's Impression: Radiology results as stated below per my review and the radiologist's interpretation: SINGLE VIEW CHEST CLINICAL HISTORY: Atypical chest pain. FINDINGS: An AP, portable, upright chest radiograph is compared to study dated 06/15/2014. The cardiomediastinal silhouette is unremarkable. The lungs and pleural spaces are clear. No pneumothorax is seen. The bony thorax is grossly intact. IMPRESSION: No active disease in the chest. ACT 112: Negative or not required by law. Electronically signed by: Tim Beck M.D. 04/13/2019 9:47 PM ECG Data Attestation: I personally reviewed and interpreted this ECG as follows: Indication: + other (HTN) Rate (beats per minute): 80 Rhythm: + normal sinus ECG Intervals/blocks: + Normal QRS ECG ST segments: no ST elevation ECG Findings: no PVCs Blood Pressure Blood Pressure Findings: Elevated blood pressure Blood Pressure Disposition: further management by hospitalist RADHA Castro I did evaluate the patient as noted above. Patient is presenting with chest pain with dyspnea on exertion. She also has significantly elevated blood pressures. She has numerous cardiac risk factors including an extensive family history and history of cigarette smoking as well as possible undiagnosed hypertension for a year. IV access was established. The patient was placed on a continuous ekg monitor. I did treat her with nitroglycerin paste. I did order and personally review the patient's 12-lead EKG as described above. Her twelve-lead EKG does not show any acute ischemic changes. I did order and personally reviewed the images of the patient's chest x-ray as described above. Chest x-ray is unremarkable. I did order and review the patient's blood work as noted in the electronic medical record. CBC shows a mild elevation of her white count but no anemia. Her renal function is a little elevated. I did treat her with normal saline IV. Troponin and d-dimer are negative. I did discuss the test results with the patient. She is still having some lightheadedness but no chest pain at this time. I did recommend hospitalization for further care and evaluation. She was agreeable. I did discuss case with the hospitalist and case checker. Impression & Plan Dyspnea on exertion, Poorly-controlled hypertension, Acute chest pain Discharge Plan Visit Data *Final* Discharge Date/Time: 04/14/19 01:59 Chief Complaint: Hypertension Stated Complaint: HYPERTENSION ED Provider: Al Vick Discharge Problem: Dyspnea on exertion, Poorly-controlled hypertension, Acute chest pain Patient Disposition: Admitted As Inpatient Discharge Instructions Interventions: ED Discharge Assessment Last Done: 04/14/19 01:59 The scribe's documentation has been prepared under my direction and personally reviewed by me in its entirety. I confirm that the note above accurately reflects all work, treatment, procedures, and medical decision making performed by me.
[2019-04-14] MEDS ORDERED: NITROGLYCERIN SL 0.4 MG/TAB TAB SL PRN (02:41)
[2019-04-14] MEDS ORDERED: ACETAMINOPHEN 325 MG TAB PO PRN (02:41)
[2019-04-14] MEDS ORDERED: TRAMADOL HCL 50 MG TABLET PO PRN (02:41)
[2019-04-14] MEDS ORDERED: LORazepam 0.5 MG/1 ML VIAL IV PRN (02:41)
[2019-04-14] MEDS ORDERED: PROMETHAZINE HCL 12.5 MG in SODIUM CHLORIDE 0.9% 50 ML IV PRN (02:41)
[2019-04-14] MEDS ORDERED: HYDROmorphone INJ 0.5 MG/0.5 ML SYR IV PRN (02:41)
[2019-04-14 03:40] LABS: Appearance Urine Clear (Clear); Bilirubin Urine Negative (Negative); Blood Urine Negative (Negative); Color Urine Yellow; Glucose Urine UA Negative (Negative); Ketones Urine Negative (Negative); Leukocyte Esterase Urine Negative (Negative); Nitrite Urine Negative (Negative); Protein Urine Negative (Negative); Specific Gravity Urine 1.026 (1.000-1.030); Urobilinogen Urine Negative (Negative)
[2019-04-14] MEDS ORDERED: MoRPHine SULFATE 2 MG/ML CARP IV PRN (04:11)
[2019-04-14 05:01] LABS: Basophils # (auto) 0.06 K/uL (0-0.2); Basophils % (auto) 0.5 %; Eosinophils % (auto) 0.8 %; Hematocrit (blood only) 41.7 % (37-47); Hemoglobin 14.5 g/dL (12.0-16.0); Immature Granulocytes % (auto) 1.6 %; Lymphocytes # (auto) 3.22 K/uL (1.2-3.4); Lymphocytes % (auto) 26.5 %; Mean Corpuscular Hemoglobin 34.5 pg (25-34); Mean Corpuscular Hgb Conc 34.8 g/dL (32-36); Mean Corpuscular Volume 99.3 fL (80-100); Monocytes # (auto) 0.81 K/uL (0.11-0.59); Monocytes % (auto) 6.7 %; Neutrophils # (auto) 7.75 K/uL (1.4-6.5); Neutrophils % (auto) 63.9 %; Platelet Count 199 K/uL (130-400); RDW Coefficient of Variation 13.5 % (11.5-14.5); RDW Standard Deviation 48.7 fL (36.4-46.3); White Blood Count 12.14 K/uL (4.8-10.8)
[2019-04-14 05:24] LABS: BUN Creatinine Ratio 15.1 (10-20); Calcium 8.5 mg/dl (8.5-10.1); Creatinine Clr Calc Pharmacy 59.7 ml/min; Est GFR (African American) 67.3; Potassium 3.7 mmol/L (3.5-5.1)
[2019-04-14] MEDS: HEPARIN SOD 5,000 UNIT/0.5 ML VIAL SQ SCH ×3 (05:24→20:30)
[2019-04-14] MEDS: ASPIRIN 81 MG ECTAB PO SCH (07:39)
[2019-04-14] MEDS: DULOXETINE HCL 60 MG CAP PO SCH (07:39)
[2019-04-14] MEDS ORDERED: [UNRECOGNIZED DRUG - OTHER] PO SCH (09:00)
[2019-04-14] MEDS ORDERED: LACTOBACILLUS RHAMNOSUS PO SCH (09:00)
[2019-04-14] MEDS ORDERED: lisinopriL 20 MG TAB PO STA (09:23)
--- NOTE | 2019-04-14 09:36 | Cardiology Consultation ---
Date of Consultation April 14, 2019 Assessment & Plan (1) Poorly-controlled hypertension: (2) High blood cholesterol: (3) Mood disorder: (4) Diabetes: I will review the patient's echocardiogram when it is completed, but at this time I do not believe any additional inpatient cardiac testing is indicated. I have ordered a direct LDL. She obviously has a mixed dyslipidemia with elevated triglycerides. She may benefit from the start of cholesterol medication prior to discharge. Hemoglobin A1c is pending however, she is most likely a type II diabetic. Therefore, I think her hypertension is best treated with an CURRY inhibitor or ARB and I will switch her from amlodipine back to li sinopril. I have ordered a TSH level. She already is followed by psychiatry but perhaps alcohol and cigarette counseling is indicated. History of Present Illness Attending Physician: Giovanna Carrasquillo, History of Present Illness This is a 44-year-old female with no prior history of heart disease. She sees a psychiatrist for anxiety and depression. She was recently at their office and to her surprise a nurse took her blood pressure. This was never done on previous occasions. She states that her blood pressure was markedly elevated. Eventually she was seen by a primary care physician who started her on lisinopril 10 mg daily. Her blood pressure remained persistently elevated and she decided to come to the emergency department. She flatly denies any history of chest pain or shortness of breath. Cardiac markers have been negative since admission. EKG shows poor R wave progression across the precordium and is listed as being unchanged. An echocardiogram is pending. She was given 1 dose of amlodipine in the emergency department and her ongoing blood pressures have been better controlled. There is a family history of heart disease and diabetes. Her cholesterol drawn this admission indicates a mixed lipidemia. Other labs are still pending including a hemoglobin A1c. She is a cigarette smoker. She also admits to at least 1 bottle of wine per night. Allergies Allergy/AdvReac Type Severity Reaction Status Date / Time prednisone Allergy Unknown unknown Verified 04/13/19 22:[address] faust records simvastatin Allergy Unknown HIVES Verified 04/13/19 22:11 hydromorphone AdvReac Intermediate N/V Verified 04/13/19 22:11 Home Medications Home Medications Medication Instructions Recorded Confirmed Type cholecalciferol (vitamin D3) 50,000 units PO WK cap 04/05/19 04/13/19 History 25,000 unit capsule duloxetine 60 mg capsule,delayed 60 mg PO QAM cap 04/05/19 04/13/19 History release mecobalamin (vitamin B12) 1,000 1,000 mcg SL DAILY 04/05/19 04/13/19 History mcg disintegrating tablet,sublingual mirtazapine 15 mg tablet 15 mg PO HS 04/05/19 04/13/19 History L. rhamnosus-L. reuteri [RepHresh 1 cap PO DAILY 04/13/19 04/13/19 History Pro-B] duloxetine [Cymbalta] 30 mg PO QPM 04/13/19 04/13/19 History lisinopril 10 mg PO DAILY 04/13/19 04/13/19 History Patient History Medical History Anxiety Cervical pain (neck) Cervical spondylosis Degenerative disc disease, cervical Depression Surgical History H/O breast augmentation History of partial hysterectomy Hx of tubal ligation Family History Mother Diabetes Father Heart disease Other CHF (congestive heart failure) Social History Preferred Language: Albanian Communication Ability: Effective Beliefs That Will Affect Care: None Current Living Situation: Spouse Other Information That Helps Us Care for You: No Feels Safe at Home: Yes Safety Concerns: Feels Safe At This Time Smoking Status: Former smoker Tobacco Type: cigarettes ; Smoking End Date: 04/13/2019 ; Hx Alcohol Use: Yes Alcohol type: hard liquor Hx Substance Use: No Review of Systems Review of Systems: All systems reviewed & are unremarkable except as noted in HPI & below Nothing additional to add. Physical Exam Physical Exam: General: no acute distress and stated age Head: normocephalic, no masses, lesions, tenderness or abnormalities Eyes: conjunctiva are pink and non-injected, sclera clear Neck: supple, no adenopathy, no bruits, normal jugular venous pulse, no hepatojugular reflux Chest: normal shape and normal respiratory effort Lungs: clear to auscultation and percussion Cardiac Exam: - regular rate & rhythm, no murmurs gallops or rubs - normal S1, normal S2 Pulses: 2(+) throughout Abdomen: abdomen soft, non-tender, no abnormal masses and no hepatosplenomegaly Musculoskeletal: no gait disturbance, no joint inflammation, no deforming arthritis Extremities: no edema and no cyanosis Neuro: grossly normal exam Results & Data Vital Signs (Past 12 Hours) Vital Signs Temp Pulse Pulse Resp BP BP Pulse Ox 04/14/19 08:00 37.1 C 98 H 20 131/93 95 04/14/19 05:00 82 18 138/91 98 04/14/19 02:28 36.8 C 77 71 16 133/92 99 04/14/19 02:20 36.8 C 78 18 133/92 97 04/14/19 01:48 78 20 129/91 04/14/19 01:21 87 20 132/100 96 04/14/19 00:05 84 20 170/115 H 97 04/13/19 22:20 86 20 165/120 H 97 Laboratory Results Laboratory Results - last 24 hr 04/13/19 04/13/19 04/13/19 20:57 20:57 20:57 WBC 11.25 H RBC 4.47 Hgb 15.4 Hct 44.3 MCV 99.1 MCH 34.5 H MCHC 34.8 RDW Std Deviation 48.4 H RDW Coeff of Jessica 13.6 Plt Count 206 MPV 9.5 Immature Gran % (Auto) 1.9 Neut % (Auto) 58.9 Lymph % (Auto) 29.4 [place] % (Auto) 8.4 Eos % (Auto) 0.8 Baso % (Auto) 0.6 Immature Gran # (Auto) 0.21 H Neut # (Auto) 6.63 H Lymph # (Auto) 3.31 [place] # (Auto) 0.94 H Eos # (Auto) 0.09 Baso # (Auto) 0.07 PT 9.8 INR 1.0 APTT 27.0 PTT Ratio 1.0 D-Dimer Sodium 136 Potassium 4.1 Chloride 103 Carbon Dioxide 24 Anion Gap 9.0 BUN 19 H Creatinine 1.21 H Est Cr Clr Drug Dosing 56.3 Est GFR ( Amer) 62.6 Est GFR (Non-Af Amer) 54.0 BUN/Creatinine Ratio 15.7 Glucose 102 H Estimat Average Glucose Hemoglobin A1c Calcium 9.7 Total Bilirubin 0.4 AST 10 L ALT 26 Alkaline Phosphatase 61 Troponin I < 0.015 Total Protein 7.5 Albumin 4.1 Globulin 3.4 Albumin/Globulin Ratio 1.2 Triglycerides Cholesterol LDL Cholesterol, Calc VLDL Cholesterol, Calc HDL Cholesterol Cholesterol/HDL Ratio Lipase Urine Color Urine Appearance Urine pH Ur Specific [place] Urine Protein Urine Glucose (UA) Urine Ketones Urine Blood Urine Nitrite Urine Bilirubin Urine Urobilinogen Ur Leukocyte Esterase Nasal Screen MRSA (PCR) 04/13/19 04/13/19 04/13/19 20:57 20:57 23:59 WBC RBC Hgb Hct MCV MCH MCHC RDW Std Deviation RDW Coeff of Jessica Plt Count MPV Immature Gran % (Auto) Neut % (Auto) Lymph % (Auto) [place] % (Auto) Eos % (Auto) Baso % (Auto) Immature Gran # (Auto) Neut # (Auto) Lymph # (Auto) [place] # (Auto) Eos # (Auto) Baso # (Auto) PT INR APTT PTT Ratio D-Dimer < 190 Sodium Potassium Chloride Carbon Dioxide Anion Gap BUN Creatinine Est Cr Clr Drug Dosing Est GFR ( Amer) Est GFR (Non-Af Amer) BUN/Creatinine Ratio Glucose Estimat Average Glucose Pending Hemoglobin A1c Pending Calcium Total Bilirubin AST ALT Alkaline Phosphatase Troponin I < 0.015 Total Protein Albumin Globulin Albumin/Globulin Ratio Triglycerides Cholesterol LDL Cholesterol, Calc VLDL Cholesterol, Calc HDL Cholesterol Cholesterol/HDL Ratio Lipase 131 Urine Color Urine Appearance Urine pH Ur Specific [place] Urine Protein Urine Glucose (UA) Urine Ketones Urine Blood Urine Nitrite Urine Bilirubin Urine Urobilinogen Ur Leukocyte Esterase Nasal Screen MRSA (PCR) 04/14/19 04/14/19 04/14/19 02:29 02:55 04:52 WBC 12.14 H RBC 4.20 Hgb 14.5 Hct 41.7 MCV 99.3 MCH 34.5 H MCHC 34.8 RDW Std Deviation 48.7 H RDW Coeff of Jessica 13.5 Plt Count 199 MPV 9.0 Immature Gran % (Auto) 1.6 Neut % (Auto) 63.9 Lymph % (Auto) 26.5 [place] % (Auto) 6.7 Eos % (Auto) 0.8 Baso % (Auto) 0.5 Immature Gran # (Auto) 0.20 H Neut # (Auto) 7.75 H Lymph # (Auto) 3.22 [place] # (Auto) 0.81 H Eos # (Auto) 0.10 Baso # (Auto) 0.06 PT INR APTT PTT Ratio D-Dimer Sodium Potassium Chloride Carbon Dioxide Anion Gap BUN Creatinine Est Cr Clr Drug Dosing Est GFR ( Amer) Est GFR (Non-Af Amer) BUN/Creatinine Ratio Glucose Estimat Average Glucose Hemoglobin A1c Calcium Total Bilirubin AST ALT Alkaline Phosphatase Troponin I Total Protein Albumin Globulin Albumin/Globulin Ratio Triglycerides Cholesterol LDL Cholesterol, Calc VLDL Cholesterol, Calc HDL Cholesterol Cholesterol/HDL Ratio Lipase Urine Color Yellow Urine Appearance Clear Urine pH 6.0 Ur Specific [place] 1.026 Urine Protein Negative Urine Glucose (UA) Negative Urine Ketones Negative Urine Blood Negative Urine Nitrite Negative Urine Bilirubin Negative Urine Urobilinogen Negative Ur Leukocyte Esterase Negative Nasal Screen MRSA (PCR) Negative 04/14/19 04:52 WBC RBC Hgb Hct MCV MCH MCHC RDW Std Deviation RDW Coeff of Jessica Plt Count MPV Immature Gran % (Auto) Neut % (Auto) Lymph % (Auto) [place] % (Auto) Eos % (Auto) Baso % (Auto) Immature Gran # (Auto) Neut # (Auto) Lymph # (Auto) [place] # (Auto) Eos # (Auto) Baso # (Auto) PT INR APTT PTT Ratio D-Dimer Sodium 138 Potassium 3.7 Chloride 105 Carbon Dioxide 27 Anion Gap 6.0 BUN 17 Creatinine 1.14 Est Cr Clr Drug Dosing 59.7 Est GFR ( Amer) 67.3 Est GFR (Non-Af Amer) 58.0 BUN/Creatinine Ratio 15.1 Glucose 108 H Estimat Average Glucose Hemoglobin A1c Calcium 8.5 Total Bilirubin AST ALT Alkaline Phosphatase Troponin I Total Protein Albumin Globulin Albumin/Globulin Ratio Triglycerides 676 H Cholesterol 285 H LDL Cholesterol, Calc VLDL Cholesterol, Calc HDL Cholesterol 30 Cholesterol/HDL Ratio 10 Lipase Urine Color Urine Appearance Urine pH Ur Specific [place] Urine Protein Urine Glucose (UA) Urine Ketones Urine Blood Urine Nitrite Urine Bilirubin Urine Urobilinogen Ur Leukocyte Esterase Nasal Screen MRSA (PCR) Medications Administered Current Inpatient Medications Acetaminophen (Tylenol) 650 mg PO Q4H PRN PRN Reason: Pain or Fever Stop: 05/14/19 02:40 Aspirin (Ecotrin Ectab) 81 mg PO QAM REPLACED BY [facility] Stop: 05/14/19 08:59 Last Admin: 04/14/19 07:39 Dose: 81 mg Documented by: Duloxetine HCl (Cymbalta) 60 mg PO QAM REPLACED BY [facility] Stop: 05/14/19 08:59 Last Admin: 04/14/19 07:39 Dose: 60 mg Documented by: Duloxetine HCl (Cymbalta) 30 mg PO QPM REPLACED BY [facility] Stop: 05/14/19 20:59 Heparin Sodium (Porcine) (Heparin Sodium (Porcine)) 5,000 units SQ Q8 [facility] Stop: 05/14/19 05:59 Last Admin: 04/14/19 05:24 Dose: 5,000 units Documented by: Sodium Chloride (Nss 1000ml) 1,000 mls @ 40 mls/hr IV .Q24H ONE Stop: 04/15/19 01:17 Last Admin: 04/14/19 02:55 Dose: 40 mls/hr Documented by: Promethazine HCl 12.5 mg/ (Sodium Chloride) 50.5 mls @ 202 mls/hr IV Q6H PRN PRN Reason: Nausea And Vomiting Stop: 05/14/19 02:40 Lorazepam (Ativan) 0.5 mg in 1 mls @ 1 mls/min IV Q4H PRN PRN Reason: Anxiety/Agitation Stop: 05/14/19 02:40 Lisinopril (Zestril) 20 mg PO QAM REPLACED BY [facility] Stop: 05/15/19 08:59 Mirtazapine (Remeron) 15 mg PO HS REPLACED BY [facility] Stop: 05/14/19 20:59 Morphine Sulfate (Morphine Sulfate) 2 mg IV Q4H PRN PRN Reason: Pain Stop: 04/28/19 04:10 Nitroglycerin (Nitrostat) 0.4 mg SL UD PRN PRN Reason: Chest Pain Stop: 05/14/19 02:40 Tramadol HCl (Ultram) 25 - 50 mg PO Q4H PRN PRN Reason: Pain Stop: 05/14/19 02:40
[2019-04-14 10:25] LABS: Thyroid Stimulating Hormone 3.6 uIu/ml (0.300-4.500)
--- NOTE | 2019-04-14 16:48 | Discharge Summary ---
Date of Service April 14, 2019 Admission HPI Per Admitting Provider History obtained from patient, family, and records. Medical history significant for hypertension, hyperlipidemia, anxiety/mood disorder, past tobacco abuse, occasional alcohol binging, cervical spondylosis as per records. Last 2 months, patient BP noted to be high outpatient on visits to [facility] Pain management. SBP 170s. Intermittent substernal discomfort in the last year occurring twice monthly even at rest with spontaneous resolution. Patient seen at PCPs office 2 days ago. SBP noted to be 170s. Patient started on lisinopril. Smoking cessation and reduction of EtOH intake recommended. Last night patient had substernal discomfort going to her neck and arm with some shortness of breath. No cough, no fever, no chills. Some lightheadedness. No headache. SBP 190s at home. Patient denies unusual stress at home, OTC NSAID intake, dietary indiscretion. Patient snores at home as per . Not sure about apneic events. Patient discomfort improved with nitroglycerin administration at the ER. Medical History as above Surgical History : Family History : Personal/Social history : Principal Diagnosis Hypertensive urgency Dyslipidemia Tobacco use Discharge Data Allergies Allergy/AdvReac Type Severity Reaction Status Date / Time prednisone Allergy Unknown unknown Verified 04/13/19 22:[address] faust records simvastatin Allergy Unknown HIVES Verified 04/13/19 22:11 hydromorphone AdvReac Intermediate N/V Verified 04/13/19 22:11 Consultations 04/13/19 23:45 ED Decision to Admit Stat 04/14/19 02:41 Consult Cardiology Routine Hospital Course (1) Chest pain: Intermittent episodes in the last year Likely secondary to uncontrolled hypertension Recently started on CURRY inhibitor outpatient Rule out ACS ARF hyperlipidemia, statin intolerance anxiety/mood disorder, at baseline past tobacco abuse Hyperglycemia rule out DM OBS PCU Initiate Norvasc in place of lisinopril in consideration of kidney dysfunction Baseline UA, monitor creatinine sponsor IV fluids. Follow troponin TTE, Cardiology consult RE intermittent chest pain Aspirin for CAD prevention until ACS ruled out Check hemoglobin A1c DVT prophylaxis Heparin subcu Full code Discharge Plan Discharge Items Patient Disposition: Home - Self-Care Reason For Visit: CP Discharge Diagnosis: Hypertensive urgency Dyslipidemia Tobacco use Condition on Discharge: Good Activity: Resume your previous activity Non-emergency contact: Primary Care Provider Call non-emergency contact if: you have any medication questions, your symptoms worsen, your pain is not controlled, your pain is worsening, your pain is unusual for you, your pain is concerning for you and you have a fever Follow-up/Referrals: Nila Estrella PA-C [Primary Care Provider] - Diet: Low Sodium (2gm) Addtl Attending Provider Instructions: Please take all medications as instructed on discharge list below. It is strongly recommended that you quit smoking, as this will lower your risk for heart disease and is very bad for your health. It is recommended that you follow-up wtih your primary care provider within one week of discharge from the hospital for a repeat check of your blood pressure and to ensure you are still doing well after going home from the hospital. Someone from our staff will contact you on Monday to set this up. It was a pleasure taking care of you! Please call if you have any questions or problems. You can reach a [facility] hospitalist on duty at [facility] 24 hours a day by calling [phone]. Take care of yourself. Giovanna Carrasquillo DO [facility] Hospitalist Pending Studies at Discharge: Yes Studies:: HbA1C Stand-Alone Forms: My [facility], Smoking Cessation Medications and DC Order Prescriptions: New lisinopril 20 mg Tablet 20 mg PO QAM Qty: 30 RF: 1 fenofibrate nanocrystallized 145 mg tablet 145 mg PO DAILY Qty: 30 RF: 1 Continued duloxetine [Cymbalta] 60 mg capsule,delayed release(DR/EC) 60 mg PO QAM RF: 0 mirtazapine [Remeron] 15 mg tablet 15 mg PO HS RF: 0 mecobalamin (vitamin B12) 1,000 mcg tablet,disintegrating 1,000 mcg SL DAILY RF: 0 cholecalciferol (vitamin D3) 25,000 unit capsule 50,000 units PO WK RF: 0 lisinopril 10 mg tablet 10 mg PO DAILY RF: 0 duloxetine [Cymbalta] 30 mg capsule,delayed release(DR/EC) 30 mg PO QPM RF: 0 RepHresh Pro-B 2.5 billion cell Capsule 1 cap PO DAILY RF: 0 Admission Data Admit Date/Time: 04/14/19 01:15 Attending Provider: Giovanna Carrasquillo Admit Provider: Zaki Garcia Primary Care Provider: Nila Estrella Other Providers: Zaki Garcia ; Justin Terrell
--- NOTE | 2019-04-14 17:19 | Hospitalist Progress Note ---
Date of Service April 14, 2019 Assessment & Plan (1) Chest pain: Resolved, likely either a side effect from elevated blood pressure versus anxiety after finding her blood pressure was even higher in the ER. Continue lifestyle and risk factor modification. Continue outpatient monitoring for recurrence of chest pain. Echo was normal today. No further cardiac work-up this admission. (2) HTN (hypertension): Blood pressure improved on increased lisinopril 20 mg daily. Continue this regimen and repeat BMP in 2 weeks as outpatient. (3) Dyslipidemia: Patient has history of hives as a reaction to simvastatin. When I discussed this with patient she stated the prior reaction was more consistent with pruritus. After discussion with pharmacy we agreed to trial her on Crestor overnight. Benadryl as needed itching. If she does well we will plan to send her home on Crestor. (4) Mood disorder: Stable, continue Cymbalta at current dose per home regimen. (5) Alcohol use: She remains quit from alcohol. She was congratulated for this effort. (6) Tobacco use: Trying to cut back/quit tobacco. This is highly encouraged as this increases her risk of coronary heart disease. This is also discouraged as it is generally bad for her health. (7) DVT prophylaxis: SCDs/ambulation Full code Disposition-to home in a.m. Giovanna Carrasquillo DO [facility] Hospitalist Subjective 44 yo female with HTN on lisinopril. She presented with elevated BP which is now more controlled. She reports development of lightheadedness, and some chest pain after hearing that her BP was >220 systolic, so there may have been a component of anxiety here, also. Additionally she has a self-reported problem with alcohol and has recently tried to cut down and ultimately stop drinking. She is also quitting smoking and is under physical stress and emotional stress as a result of these things. Today she is feeling well she denies any chest pain or shortness of breath. Blood pressure is in the normal range. Lipids are very high and she has a history of familial hypertriglyceridemia with 2 first- degree relatives who had early cardiac events in their 50s. She reports a history of itching with simvastatin which is listed as hives on her allergy profile. I spoke with pharmacy regarding cross-reactivity with a different statin, Crestor. I spoke with the patient and her who would like to trial this here in the hospital. Therefore, we decided to watch her overnight after giving some Crestor this evening. Echo was performed and normal. Review of Systems Review of Systems: All systems reviewed & are unremarkable except as noted in Subjective Physical Exam Physical Exam: CONSTITUTIONAL: WNWD, vitals as above, generally well- appearing EYES: normal conjunctivae, no scleral icterus ENT: MMM RESPIRATORY: clear to auscultation bilaterally, no crackles, rales or wheezes, normal respiratory effort CARDIOVASCULAR: regular rate and rhythm, S1 and 2 heard without murmurs, gallops or rubs, no JVD, no peripheral edema GASTROINTESTINAL: normal bowel sounds, soft, nontender, nondistended MUSCULOSKELETAL: strength 5/5 throughout, head is normocephalic and atraumatic, neck supple, normal palpation of chest wall without tenderness SKIN: warm and dry NEUROLOGIC: CN 2-12 grossly intact, normal cognition, normal speech PSYCHIATRIC: alert cooperative and oriented to person, place and time. Results & Data ([facility]) Vital Signs (Past 12 Hours) Vital Signs Temp Pulse Resp BP Pulse Ox 04/14/19 16:00 36.9 C 77 20 137/93 94 04/14/19 12:00 37.0 C 83 16 138/97 96 04/14/19 08:00 37.1 C 98 H 20 131/93 95 Laboratory Results Short CBC 04/13/19 04/14/19 Range/Units 20:57 04:52 WBC 11.25 H 12.14 H (4.8-10.8) K/uL Hgb 15.4 14.5 (12.0-16.0) g/dL Hct 44.3 41.7 (37-47) % Plt Count 206 199 (130-400) K/uL BMP 04/13/19 04/14/19 20:57 04:52 Sodium 136 138 Potassium 4.1 3.7 Chloride 103 105 Carbon Dioxide 24 27 BUN 19 H 17 Creatinine 1.21 H 1.14 Glucose 102 H 108 H Calcium 9.7 8.5 Cardiac Enzymes 04/13/19 04/13/19 Range/Units 20:57 23:59 Troponin I < 0.015 < 0.015 (0-0.045) ng/ml Liver Function 04/13/19 Range/Units 20:57 Total Bilirubin 0.4 (0.2-1) mg/dl AST 10 L (15-37) U/L ALT 26 (12-78) U/L Alkaline Phosphatase 61 (45-117) U/L Albumin 4.1 (3.4-5.0) gm/dl Urine 04/14/19 Range/Units 02:55 Urine Color Yellow Urine Appearance Clear (Clear) Urine pH 6.0 (4.5-7.5) Ur Specific Joice 1.026 (1.000-1.030) Urine Protein Negative (Negative) Urine Glucose (UA) Negative (Negative) Medications Administered Current Inpatient Medications Acetaminophen (Tylenol) 650 mg PO Q4H PRN PRN Reason: Pain or Fever Stop: 05/14/19 02:40 Aspirin (Ecotrin Ectab) 81 mg PO [facility] Stop: 05/14/19 08:59 Last Admin: 04/14/19 07:39 Dose: 81 mg Documented by: Diphenhydramine HCl (Benadryl Capsule) 25 - 50 mg PO Q6H PRN PRN Reason: itching/hives Stop: 05/14/19 17:17 Duloxetine HCl (Cymbalta) 60 mg PO [facility] Stop: 05/14/19 08:59 Last Admin: 04/14/19 07:39 Dose: 60 mg Documented by: Duloxetine HCl (Cymbalta) 30 mg PO QPM [facility] Stop: 05/14/19 20:59 Heparin Sodium (Porcine) (Heparin Sodium (Porcine)) 5,000 units SQ Q8 [facility] Stop: 05/14/19 05:59 Last Admin: 04/14/19 14:23 Dose: Not Given Documented by: Promethazine HCl 12.5 mg/ (Sodium Chloride) 50.5 mls @ 202 mls/hr IV Q6H PRN PRN Reason: Nausea And Vomiting Stop: 05/14/19 02:40 Lorazepam (Ativan) 0.5 mg in 1 mls @ 1 mls/min IV Q4H PRN PRN Reason: Anxiety/Agitation Stop: 05/14/19 02:40 [facility] Stop: 05/15/19 08:59 Mirtazapine (Remeron) [address] [facility] Stop: 05/14/19 20:59 Morphine Sulfate (Morphine Sulfate) 2 mg IV Q4H PRN PRN Reason: Pain Stop: 04/28/19 04:10 Nitroglycerin (Nitrostat) 0.4 mg SL UD PRN PRN Reason: Chest Pain Stop: 05/14/19 02:40 Rosuvastatin Calcium (Crestor) 10 mg PO Q24H [facility] Stop: 05/14/19 17:14 Tramadol HCl (Ultram) 25 - 50 mg PO Q4H PRN PRN Reason: Pain Stop: 05/14/19 02:40
[2019-04-14] MEDS ORDERED: ROSUVASTATIN CALCIUM 10 MG TAB PO SCH (18:00)
[2019-04-14] MEDS ORDERED: DULOXETINE HCL 30 MG CAP PO SCH (21:00)
[2019-04-14] MEDS ORDERED: MIRTAZAPINE TAB 15 MG TAB PO SCH (21:00)
--- NOTE | 2019-04-14 21:55 | Electrocardiogram Report ---
Test Reason : Blood Pressure : / mmHG Vent. Rate : 080 BPM Atrial Rate : 080 BPM P-R Int : 132 ms QRS Dur : 076 ms QT Int : 370 ms P-R-T Axes : 017 034 061 degrees QTc Int : 426 ms Normal sinus rhythm When compared with ECG of 11-AUG-2009 23:38, No significant change was found Confirmed by Mikey Dwyer ([id number]) on 04/14/2019 9:54:53 PM Referred By: REFERRED SELF Confirmed By:Mikey Dwyer
[2019-04-15] MEDS: HEPARIN SOD 5,000 UNIT/0.5 ML VIAL SQ SCH (05:04)
[2019-04-15 06:25] LABS: Estimated Average Glucose 97 mg/dl
[2019-04-15] MEDS: ASPIRIN 81 MG ECTAB PO SCH (08:06)
[2019-04-15] MEDS: DULOXETINE HCL 60 MG CAP PO SCH (08:06)
[2019-04-15] MEDS ORDERED: lisinopriL 20 MG TAB PO SCH (09:00)
--- NOTE | 2019-04-15 10:48 | Discharge Summary ---
Date of Service April 15, 2019 Admission HPI Per Admitting Provider Chief Complaint: Chest pain Primary Care Provider: Nila Estrella PA-C History obtained from patient, family, and records. Medical history significant for hypertension, hyperlipidemia, anxiety/mood disorder, past tobacco abuse, occasional alcohol binging, cervical spondylosis as per records. Last 2 months, patient BP noted to be high outpatient on visits to [facility]. SBP 170s. Intermittent substernal discomfort in the last year occurring twice monthly even at rest with spontaneous resolution. Patient seen at PCPs office 2 days ago. SBP noted to be 170s. Patient started on lisinopril. Smoking cessation and reduction of EtOH intake recommended. Last night patient had substernal discomfort going to her neck and arm with some shortness of breath. No cough, no fever, no chills. Some lightheadedness. No headache. SBP 190s at home. Patient denies unusual stress at home, OTC NSAID intake, dietary indiscretion. Patient snores at home as per . Not sure about apneic events. Patient discomfort improved with nitroglycerin administration at the ER. Admission Exam Per Admitting Provider GENERAL: Comfortable, pleasant, no respiratory distress SKIN: Normal color, warm HEENT: [place]crombie palpebral conjunctivae, no ptosis, dry buccal mucosa NECK : Supple, no tenderness CHEST : CTA, no tenderness HEART : RRR, no obvious murmurs ABDOMEN: Soft, nontender EXTREMITIES : No LE swelling/tenderness, no other conspicuous deformities noted NEUROLOGIC : Coherent, no facial asymmetry, no other gross focality Principal Diagnosis Hypertensive urgency Dyslipidemia Tobacco use Discharge Data Allergies Allergy/AdvReac Type Severity Reaction Status Date / Time prednisone Allergy Unknown unknown Verified 04/13/19 22:[address] faust records simvastatin Allergy Unknown HIVES Verified 04/13/19 22:11 hydromorphone AdvReac Intermediate N/V Verified 04/13/19 22:11 Consultations 04/13/19 23:45 ED Decision to Admit Stat 04/14/19 02:41 Consult Cardiology Routine Hospital Course (1) HTN (hypertension): (2) Chest pain: (3) Dyslipidemia: (4) Alcohol use: (5) Tobacco use: 44-year-old female with a history of dyslipidemia was admitted to the hospitalist service for atypical chest pain. Her blood pressure was markedly elevated on admission prompting the development of her chest pain which resolved. EKG revealed poor R wave progression across the precordium. She was given 1 dose of amlodipine in the ED and further blood pressures were better controlled. An echocardiogram was performed and normal. She was noted to have mixed lipidemia with elevated triglycerides, but had a noted statin intolerance. A hemoglobin A1c was performed and negative. Her lisinopril 10 mg was increased to 20 mg daily. A TSH was checked and normal. Cigarette smoking and alcohol use was strongly recommended against. She is in the process of quitting/stay quit and was congratulated for this. No further ischemic work-up was thought to be needed at this point. Optimization of blood pressure and lipids in addition to lifestyle modifications is recommended. If any further pain develops in the future further ischemic work-up may be considered. She stayed in the hospital and additional night to challenge her with Crestor and did well. At time of discharge she was hemodynamically stable and afebrile and tolerating p.o. She was mentating ambulating at baseline. Physical exam was unremarkable and she was sent home in stable condition with close primary care follow-up recommended. Total Time Total Time Spent Total Time Spent (In Minutes): 60 Total Time Includes: Examination of the Patient, Discharge Planning, Medication Reconciliation and Communication With Other Providers Discharge Plan Discharge Items Patient Disposition: Home - Self-Care Reason For Visit: CP Discharge Diagnosis: Hypertensive urgency Dyslipidemia Tobacco use Condition on Discharge: Good Activity: Resume your previous activity Non-emergency contact: Primary Care Provider Call non-emergency contact if: you have any medication questions, your symptoms worsen, your pain is not controlled, your pain is worsening, your pain is unusual for you, your pain is concerning for you and you have a fever Follow-up/Referrals: Moises Byrd MD [Physician] - 04/18/19 11:00 am (04/18/2019 11:00 AM, Moises Byrd III, MD [facility] ) Nila Estrella PA-C [Primary Care Provider] - Diet: Low Sodium (2gm) Addtl Attending Provider Instructions: Please take all medications as instructed on discharge list below. It is strongly recommended that you quit smoking, as this will lower your risk for heart disease and is very bad for your health. It is recommended that you follow-up wtih your primary care provider within one week of discharge from the hospital for a repeat check of your blood pressure and to ensure you are still doing well after going home from the hospital. Someone from our staff will contact you on Monday to set this up. It was a pleasure taking care of you! Please call if you have any questions or problems. You can reach a [facility] hospitalist on duty at [facility] 24 hours a day by calling [phone]. Take care of yourself. Giovanna Carrasquillo DO [facility] Pending Studies at Discharge: Yes Studies:: HbA1C Stand-Alone Forms: My [facility], Smoking Cessation Medications and DC Order Prescriptions: New lisinopril 20 mg Tablet 20 mg PO QAM Qty: 30 RF: 1 rosuvastatin [Crestor] 10 mg Tablet 10 mg PO HS Qty: 30 RF: 1 Continued duloxetine [Cymbalta] 60 mg capsule,delayed release(DR/EC) 60 mg PO QAM RF: 0 mirtazapine [Remeron] 15 mg tablet 15 mg PO HS RF: 0 mecobalamin (vitamin B12) 1,000 mcg tablet,disintegrating 1,000 mcg SL DAILY RF: 0 cholecalciferol (vitamin D3) 25,000 unit capsule 50,000 units PO WK RF: 0 lisinopril 10 mg tablet 10 mg PO DAILY RF: 0 duloxetine [Cymbalta] 30 mg capsule,delayed release(DR/EC) 30 mg PO QPM RF: 0 RepHresh Pro-B 2.5 billion cell Capsule 1 cap PO DAILY RF: 0 Discharge Orders: Discharge Order (Routine); Ordered 04/15/19 Ordered By: Giovanna Carrasquillo Admission Data Admit Date/Time: 04/14/19 17:15 Attending Provider: Giovanna Carrasquillo Admit Provider: Zaki Garcia Primary Care Provider: Nila Estrella Other Providers: Zaki Garcia ; Justin Terrell Other Interventions: Discharge Summary Assessment (RN) Last Done: 04/15/19 10:48 DC Date/Time DO NOT enter until pt leaves facility: 04/15/19 11:42
--- NOTE | 2019-04-15 12:46 | Electrocardiogram Report ---
Test Reason : Blood Pressure : / mmHG Vent. Rate : 081 BPM Atrial Rate : 081 BPM P-R Int : 130 ms QRS Dur : 076 ms QT Int : 380 ms P-R-T Axes : 010 022 049 degrees QTc Int : 441 ms Normal sinus rhythm Normal ECG When compared with ECG of 13-APR-2019 20:38, No significant change was found Confirmed by Maxim Yeboah ([id number]) on 04/15/2019 12:46:08 PM Referred By: REFERRED SELF Confirmed By:Maxim Yeboah
== END 2019-04-15 11:42 | disposition home or self-care (01) | DRG 305 ==
LOC: ED 20:23 → 1E 20:23 → 2S 04-14 16:18